=== PATIENT | female | born 1955 | race Caucasian/White ===

== ENCOUNTER 2022-05-20 15:10 | Emergency (ER) | payer MEDICARE, SELFPAY ==
[2022-05-20 15:22] VITALS: BP 152/75; PULSE 66; RESP 18; TEMP 37.1; O2SAT 98; BMI 41.7
--- NOTE | 2022-05-20 15:50 | W.ED.WOUNDLC ---
HPI - Wound/Laceration General: Chief Complaint: Wound/Laceration Stated Complaint: Left leg injury Time Seen by Provider: 05/20/22 15:39 History of Present Illness: Patient is a 66-year-old female who comes to the ED with a laceration on left lower leg. Patient was at [employer] today and walking on a hill. she lost her balance on hill and fell. She fell into a wooden stick which caused the laceration on her left leg. She was able to get back up on her own and was ambulatory. Denies any head trauma or loss of consciousness. She rinsed the laceration out with some fresh water and then put a bandage on it and came here to the ED to get evaluated. Patient is unsure of last tetanus and would like to get updated tetanus shot here in the ED. Associated symptoms: Denies chills, fever(s), nausea or vomiting Review of Systems Const: Denies: fever(s), chills or fatigue Eyes: Denies: change in vision or eye discomfort ENMT: Denies: throat pain, odynophagia, nasal discharge or nasal congestion Card: Denies: chest pain, palpitations, edema, swelling of feet/ankles, dyspnea on exertion or orthopnea Resp: Denies: dyspnea, productive cough or non-productive cough GI: Denies: abdominal pain, nausea, vomiting, diarrhea, constipation or hematochezia : Denies: flank pain, dysuria or hematuria Musc: Denies: neck pain, back pain or extremity swelling Skin/Breast: Reports: new lesions (Laceration to left lower leg); Denies: rash Neuro: Denies: headache(s), numbness in extremities or weakness in extremities [facility] PFSH: Medical History (Updated 05/21/22 @ 07:10 by ABRAN Ovalle) No pertinent family history No pertinent past medical history Physical Exam Const: COMMON NORMALS: no acute distress, patient oriented x3 and alert HENMT: COMMON NORMALS: normocephalic HEAD & SCALP: normocephalic MOUTH: Normal oral and palatal mucosa present THROAT: posterior oropharynx normal and uvula midline Neck/C-Spine: COMMON NORMALS: supple GENERAL: Yes normal visual inspection Resp: COMMON NORMALS: normal respiratory effort, No retractions, No use of accessory muscles and clear to auscultation bilaterally AUSCULTATION: clear to auscultation bilaterally Cardio: COMMON NORMALS: regular rate, regular rhythm, S1 normal heart sound present, S2 normal heart sound present, No gallops present (Cardio), No clicks present (Cardio), No murmurs present (Cardio) and Peripheral pulses 2+ throughout RATE: regular rate RHYTHM: regular rhythm HEART SOUNDS: S1 normal heart sound present and S2 normal heart sound present PERIPHERAL PULSES: Peripheral pulses 2+ throughout GI: COMMON NORMALS: Normal to inspection, nondistended, normoactive bowel sounds present, Soft to palpation, non-tender and no masses PALPATION: Yes Soft to palpation : COMMON NORMALS: Yes no CVA tenderness BLADDER/KIDNEY EXAM: Yes no CVA tenderness Back/Pelvis: COMMON NORMALS: no CVA tenderness Extremity: NARRATIVE EXTREMITY EXAM: Irregular shaped 2 cm superficial laceration on the left lateral lower leg. No active bleeding noted. Neuro: COMMON NORMALS: patient oriented x3 and moves all extremities SENSORIUM/ORIENTATION: Yes alert Skin: NARRATIVE SKIN EXAM: Irregular shaped 2 cm superficial laceration on the left lateral lower leg. No active bleeding noted. GENERAL SKIN EXAM: dry skin Procedures Laceration Laceration 1: Site: lower extremity (left lower leg) Side (If applicable): left Size (cm): 2 Description: irregular Depth: simple, single layer Local Anesthetic: lidocaine 1% and with epi Amount of anesthesia used (mL): 5 Pre-repair: irrigated extensively (With normal saline and beta iodine wash.) Skin layer closed with: nylon Size (cm): 3-0 Number of sutures: 7 Technique: simple, interrupted Course Vital Signs: Vital signs: Vital Signs Temperature 98.7 F 05/20/22 15:22 Pulse Rate 74 05/20/22 17:23 Respiratory Rate 16 05/20/22 17:23 Blood Pressure 152/75 05/20/22 15:22 Pulse Oximetry 95 05/20/22 17:23 MDM - Wound/Laceration Medical Decision Making Patient is a 66-year-old female comes to the ED with a laceration to left lower leg. Vitals are stable. No active bleeding upon exam. She has a 2 cm superficial and irregular shaped laceration with no foreign bodies or contaminants noted. Laceration was irrigated extensively with normal saline and beta iodine wash. 7 sutures were used to close laceration. See procedure note for details. She was given updated tetanus here in the ED. Triple antibiotic ointment and bandage applied by nurse. She was discharged home on a prophylactic dose of cephalexin. She was informed on how to care for sutures and to follow-up with her PCP within the next 7 to 10 days to have sutures removed. Return ED precautions given. Patient understood and agreed with plan. Discharge Plan Discharge Patient Disposition: Home Clinical Impression: Laceration of leg, left Qualifiers: Encounter type: initial encounter Qualified Code(s): S81.812A - Laceration without foreign body, left lower leg, initial encounter Condition: Stable Prescriptions: New cephalexin 500 mg capsule 500 mg PO Q6H 4 Days Qty: 16 0RF Discharge Orders: Discharge ED (Routine); Ordered 05/20/22 Ordered By: Lei Schrader Discharge Diet: Regular Discharge Activity: Increase activity as tolerated Patient Instructions: Laceration (DC) Activity Restrictions/Additional Instructions: Take full course of antibiotics as prescribed. Keep laceration site clean and dry for the next 48 hours. Then after that you can clean and re-bandage daily. Watch for signs of infection such as redness, warmth, increased tenderness and puslike drainage. If you see the signs of infection return to the ED, urgent care or PCP for reevaluation. call your PCP to schedule a follow-up appointment for reevaluation and suture removal in about 7- 10 days. Continue taking all home meds. Follow discharge plans as discussed. You can return to the ED if symptoms worsen. Coding Level of Care Code ED Bill Collector for Denis Liu Exam Comprehensive
[2022-05-20] MEDS: tetanus-dipt-pertussis 0.5 mL SDV IM (16:29)
[2022-05-20 17:23] VITALS: PULSE 74; RESP 16; O2SAT 95
[2022-05-20] MEDS: neomycin-poly-bacitracin oint 0.9 gm Pkt 1 APPLIC TOPICAL (17:23)
[2022-05-20] MEDS: cephALEXin 500 mg Capsule PO (17:23)
--- NOTE | 2022-05-20 17:23 | PC.NURSE ---
LEFT LATERAL LOWER EXT LACERATION DRESSED WITH TELFA AND ASHLEY.
== END 2022-05-20 17:28 | disposition home or self-care (01) ==
PROVIDERS: Emergency Provider Physician Assistant
DX: S81.812A Laceration without foreign body, left lower leg, initial encounter (principal); W17.81XA Fall down embankment (hill), initial encounter; Z23 Encounter for immunization
CPT/HCPCS: 12001; 90471; 90715; 99283; A6446